=== PATIENT | male | born 1985 | race African-American/Black ===

== ENCOUNTER 2019-07-23 19:27 | Emergency (ER) | payer SELFPAY ==
[2019-07-23] MEDS ORDERED: Acetaminophen 500 MG TAB ONE (20:19)
[2019-07-23] MEDS ORDERED: cefTRIAXone\\ROCEPHIN 2 GM VIAL ONE (20:19)
[2019-07-23] MEDS ORDERED: Azithromycin 500 MG VIAL ONE (20:19)
[2019-07-23 20:24] LABS: #Basophils 0.1 thou/uL (0.0-0.2); #Eosinphils 0.2 thou/uL (0.0-0.7); #Lymphocytes 3.9 thou/uL (1.20-3.40); #Monocytes 0.5 thou/uL (0.11-0.59); #Neutrophils 3.6 thou/uL (1.40-6.50); %Basophils 1.3 % (0.0-1.0); %Eosinophils 2.3 % (0.0-10.0); %Lymphocytes 46.9 % (21.0-51.0); %Monocytes 6.3 % (0.0-10.0); %Neutrophils 43.2 % (42.0-75.0); Hemoglobin 13.8 g/dL (14.0-18.0); Mean Corpuscular Hemoglobin 29.1 pg (27.0-31.0); Mean Corpuscular Volume 88.2 fL (78.0-98.0); Platelet Count 252 thou/uL (130-400); RBC Distribution Width 12.8 % (11.5-14.5); Red Blood Cell (RBC) Count 4.73 mill/uL (4.70-6.10); White Blood Cell (WBC) Count 8.3 thou/uL (4.8-10.8)
--- NOTE | 2019-07-23 20:32 | RAD ---
RADIOGRAPH CHEST 1 VIEW: DATE: 07/23/2019 HISTORY: 33-year-old male with cough and fever FINDINGS: The visualized lung dent are clear. The cardiomediastinal silhouette and hilar shadows are normal. The lateral costophrenic angles are sharp. The osseous structures appear normal. There is no pneumothorax. IMPRESSION: Negative.
[2019-07-23 20:45] LABS: ALT (SGPT) 20 U/L (8-55); AST (SGOT) 38 U/L (5-34); Albumin 3.3 g/dL (3.5-5.0); Alkaline Phosphatase 95 U/L (40-110); Anion Gap 9 mmol/L (10-20); BUN (Urea Nitrogen) 9 mg/dL (8.9-20.6); Bilirubin, Total 0.3 mg/dL (0.2-1.2); Calc. Creatinine Clearance 0 mL/min (70-130); Calcium 9.3 mg/dL (7.8-10.44); Carbon Dioxide 28 mmol/L (22-29); Chloride 101 mmol/L (98-107); Estimated GFR-MDRD Greater than 90; Globulin 8.3 g/dL (2.4-3.5); Glucose 82 mg/dL (70-105); Potassium 3.6 mmol/L (3.5-5.1); Protein, Total 11.6 g/dL (6.0-8.3); Sodium 134 mmol/L (136-145)
== END 2019-07-23 22:40 | disposition home or self-care (01) ==
LOC: ERS 19:27
DX: J18.9 Pneumonia, unspecified organism (principal); F17.210 Nicotine dependence, cigarettes, uncomplicated
CPT/HCPCS: 71045; 80053; 83605; 85025; 87804; 96365; 96375; J0456; J0696

== ENCOUNTER 2020-06-08 09:27 | Emergency (ER) | payer BC, SELFPAY ==
[2020-06-08 10:07] LABS: Bacteria/HPF None Seen HPF (None Seen); Bilirubin Negative (Negative); Blood, Urine 3+ (Negative); Clarity Turbid (Clear); Glucose, Urine (Dipstick) Normal (Negative); Ketone, Urine Negative (Negative); Leukocyte 500 Leu/uL (Negative); Nitrite Negative (Negative); Protein, Urine (Dipstick) 70 mg/dL (Neg-Trace); RBC/HPF Greater than 50 HPF (0-3); Specific Gravity, Urine 1.018 (1.002-1.036); Squamous Epithelial 0-3 HPF (0-3); WBC/HPF Greater than 50 HPF (0-3)
[2020-06-08] MEDS ORDERED: Ketorolac Tromethamine 30 MG/ML VIAL ONE (10:09)
[2020-06-08 10:54] LABS: Hemoglobin 11.2 g/dL (14.0-18.0); Mean Corpuscular HGB CONC 34.4 g/dL (32.0-36.0); Mean Corpuscular Hemoglobin 31.2 pg (27.0-31.0); Mean Corpuscular Volume 90.8 fL (78.0-98.0); Mean Platelet Volume 6.6 fL (7.4-10.4); Platelet Count 200 thou/uL (130-400); RBC Distribution Width 13.8 % (11.5-14.5); White Blood Cell (WBC) Count 5.6 thou/uL (4.8-10.8)
[2020-06-08 11:21] LABS: ALT (SGPT) 19 U/L (8-55); AST (SGOT) 36 U/L (5-34); Albumin 2.6 g/dL (3.5-5.0); Alkaline Phosphatase 80 U/L (40-110); Anion Gap 10 mmol/L (10-20); BUN (Urea Nitrogen) 10 mg/dL (8.9-20.6); Bilirubin, Total 0.5 mg/dL (0.2-1.2); Calc. Creatinine Clearance 0 mL/min (70-130); Calcium 7.9 mg/dL (7.8-10.44); Carbon Dioxide 24 mmol/L (22-29); Chloride 100 mmol/L (98-107); Estimated GFR-MDRD Greater than 90; Globulin 8.4 g/dL (2.4-3.5); Glucose 80 mg/dL (70-105); Potassium 3.6 mmol/L (3.5-5.1); Sodium 130 mmol/L (136-145)
[2020-06-08 11:30] LABS: Eosinophils 2 % (0-10); Lymphocytes 50 % (21-51); MDiff Complete? YES; Monocytes 9 % (0-10); Neutrophil 39 % (42-75); Platelet Morphology Comment Appears Adequate
--- NOTE | 2020-06-08 11:41 | CT ---
CT ABDOMEN AND PELVIS WITHOUT CONTRAST: DATE: 06/08/2020. PROVIDED CLINICAL HISTORY: Lower abdominal pain and dysuria. FINDINGS: The visualized lung bases are free of significant opacity. The solid abdominal organs are suboptimally evaluated in the absence of IV contrast material but demo nstrate an unremarkable unenhanced CT appearance. There is no evidence for urinary tract calculi or hydronephrosis. Evaluation of the bowel and peritoneal fat is limited due to a paucity of fat and lack of oral contra st material. There is apparent conspicuous mural thickening involving transverse colon and loops of small bowel within the left upper quadrant. There is edema or stranding present within the mesentery of the left upper quadrant. There is no evidence for bowel obstruction, free fluid, or free air. The appendix is not distinctly identified. there are numerous and occasionally enlarged lymph nodes present throughout the central small bowel mesentery, retroperitoneum, both external iliac and obturator regions, and both inguinal regions. The largest lymph node is present within the left inguinal region and measures about 2.1 cm in short axis. The osseous structures demonstrate no concerning lytic or blastic lesions. IMPRESSION: 1. Extensive regional lymphadenopathy concerning for lymphoma. 2. Abnormal mural thickening involving both large and small bowel. There is associated edema or flu id within the bowel mesentery of the left upper quadrant. Findings could reflect an infectious or in flammatory process. Lymphomatous involvement of bowel should also be considered. POS: KAYLEN
[2020-06-11 21:28] LABS: Chlam.trachomatis by PCR,Urine DETECTED (NotDetected)
== END 2020-06-08 11:51 | disposition home or self-care (01) ==
LOC: ERS 09:27
DX: K52.9 Noninfective gastroenteritis and colitis, unspecified (principal); R59.1 Generalized enlarged lymph nodes; Z87.891 Personal history of nicotine dependence
CPT/HCPCS: 36415; 74176; 80053; 81003; 81015; 85025; 87491; 87591; 96372; J0500; J1885